=== PATIENT | female | born 1990 | race Caucasian/White ===

== ENCOUNTER 2017-07-17 08:11 | Emergency (ER) | payer OTHER ==
[~2017-07-17] VITALS: Ht 157.5 cm; Wt 104.3 kg
[~2017-07-17 08:11] MED LIST: ALBU90OI61 INH; AZIT250 PO; BCP'S; BIRTH CONTROL; Baclofen10 MG PO; CEPH500 PO; CYCL10 PO; DIPATR PO; FERSU300 PO; HYDACE5 PO; HYDACE5325 PO; IBUP600 PO; LEVSOD50; LEVSOD50 PO; METPRE4DP PO; MULVITMINE PO; Macrobid 100 M100 MG PO; Norco 5-325 Ta1 EACH PO; PHENTERMINE; PROM25 PO; Percocet 5-3251 EACH PO; Phentermine HCl15 MG PO; Phentermine HCl30 MG; Prednisone20 MG PO; Pyridium100 MG PO; RXCYCL10 PO; RXHYDACE PO; SERT100 PO; SULTRIDS PO; SUPRENZA ODT37.5 MG PO; Veetids 500500 MG PO; Zofran Odt8 MG SL
[2017-07-17] MEDS ORDERED: Vibramycin100 MG PO (08:52)
[2017-07-17] MEDS ORDERED: Norco 5-325 Ta1 EACH PO (08:52)
[2017-07-18] MEDS ORDERED: Norco 10-325 T1 EACH PO (11:45)
== END 2017-07-17 08:55 | disposition home or self-care (01) ==
LOC: ER 08:11
DX: N76.2 Acute vulvitis (principal); Z79.899 Other long term (current) drug therapy
CPT/HCPCS: 99283

== ENCOUNTER 2017-07-18 09:26 | Emergency (ER) | payer OTHER ==
[~2017-07-18] VITALS: Ht 157.5 cm; Wt 104.3 kg
[~2017-07-18 09:26] MED LIST changes: +Vibramycin100 MG PO
[2017-07-18] MEDS ORDERED: Norco 10-325 T1 EACH PO (11:45)
== END 2017-07-18 12:04 | disposition home or self-care (01) ==
LOC: ER 09:26
DX: N76.4 Abscess of vulva (principal); Z79.899 Other long term (current) drug therapy; F17.210 Nicotine dependence, cigarettes, uncomplicated
CPT/HCPCS: 56405; 99283

== ENCOUNTER 2017-12-08 17:17 | Emergency (ER) | payer OTHER ==
[~2017-12-08] VITALS: Ht 157.5 cm; Wt 200.0 kg
[~2017-12-08 17:17] MED LIST changes: +Norco 10-325 T1 EACH PO
[2017-12-08] MEDS ORDERED: CEPH500 PO (18:14)
== END 2017-12-08 18:18 | disposition home or self-care (01) ==
LOC: ER 17:17
DX: L03.032 Cellulitis of left toe (principal); F17.210 Nicotine dependence, cigarettes, uncomplicated; Z79.899 Other long term (current) drug therapy
CPT/HCPCS: 73630; 99284-25

== ENCOUNTER → 2020-06-10 | Outpatient (CLI) | payer OTHER ==
[~2020-06-10] MED LIST changes: +Adipex-P37.5 M1 PO
[2020-06-11 11:06] LABS: Candida species (DNA Probe) Negative (NEGATIVE); G. vaginalis (DNA Probe) Positive (NEGATIVE); T. vaginalis (DNA Probe) Positive (NEGATIVE)
[2020-06-12 06:11] LABS: CHLAMYDIA TRACHOMATIS, NAA Negative (Negative)
== END | disposition home or self-care (01) ==
LOC: PLD 12:03 → LAB SHORT 12:03
PROVIDERS: Family Medicine
DX: Z11.3 Encounter for screening for infections with a predominantly sexual mode of transmission (principal); N76.0 Acute vaginitis
CPT/HCPCS: 87480; 87491; 87510; 87591; 87660

== ENCOUNTER 2020-11-23 00:22 | Emergency (ER) | payer OTHER | END 2020-11-23 02:39 | disposition home or self-care (01) | LOC: ER 00:22 | DX: N93.9 Abnormal uterine and vaginal bleeding, unspecified (principal) ==

== ENCOUNTER → 2021-04-04 | Outpatient (CLI) | payer OTHER ==
[2021-04-04 15:05] LABS: BASOPHILS ABSOLUTE AUTO 0.05 K/mm3 (0.00-0.23); BASOPHILS PERCENT AUTO 0 % (0-2); EOSINOPHILS PERCENT AUTO 3 % (0-6); Hematocrit 41.9 % (33.0-51.0); Hemoglobin 14.5 g/dL (11.5-16.0); IMMATURE GRAN ABSOLUTE AUTO 0.05 K/mm3 (0.00-0.10); IMMATURE GRAN PERCENT AUTO 0 % (0-1); LYMPHOCYTES ABSOLUTE AUTO 3.09 K/mm3 (0.84-5.20); LYMPHOCYTES PERCENT AUTO 24 % (21-46); MONOCYTES ABSOLUTE AUTO 0.67 K/mm3 (0.16-1.47); MONOCYTES PERCENT AUTO 5 % (4-13); Mean Corpuscular HGB 29.7 pg (26.0-34.0); Mean Corpuscular HGB Conc 34.6 g/dL (31.5-36.5); Mean Corpuscular Volume 86 fL (80-100); Mean Platelet Volume 10.3 fL (9.1-12.4); NEUTROPHILS ABSOLUTE AUTO 8.74 K/mm3 (1.96-9.15); NEUTROPHILS PERCENT AUTO 67 % (41-73); Platelet Count 372 K/mm3 (150-400); RDW Coefficient Variation 13.2 % (11.7-14.2); RDW Standard Deviation 40.5 fL (35.1-46.3); Red Blood Cell Count 4.89 M/mm3 (3.80-5.20)
[2021-04-04 15:22] LABS: Alanine Aminotransfer (ALT/SGP 30 U/L (12-78); Albumin, Blood 3.9 g/dL (3.4-5.0); Alk Phos 91 U/L (40-126); Anion Gap 10 mmol/L (6-16); Aspartate Aminotrans (AST/SGOT 16 U/L (12-37); Bilirubin, Total 0.3 mg/dL (0.1-1.0); Blood Urea Nitrogen 10 mg/dL (8-24); Bun/Creatinine Ratio 15.2 (12.0-20.0); CO2, Blood 27 mmol/L (21-32); Calcium, Blood 8.8 mg/dL (8.5-10.1); Chloride, Blood 102 mmol/L (98-108); Creatinine, Blood 0.66 mg/dL (0.40-1.00); Glomerular Filtration Rate >60 (60-); Glucose, Blood 101 mg/dL (70-99); Potassium, Blood 4.3 mmol/L (3.5-5.5); Sodium, Blood 139 mmol/L (136-145); Total Protein, Blood 7.9 g/dL (6.4-8.2)
== END ==
LOC: LAB 14:58 → LAB SHORT 14:58
PROVIDERS: Physician Assistant Medical
DX: R10.84 Generalized abdominal pain (principal); Z32.01 Encounter for pregnancy test, result positive
CPT/HCPCS: 80053; 84702; 85025